=== PATIENT | female | born 2000 | race Caucasian/White ===

== ENCOUNTER 2023-08-09 22:05 | Emergency (ER) | payer SELFPAY ==
[2023-08-09] MEDS ORDERED: Azithromycin 250 MG TAB ONE (23:46)
== END 2023-08-09 23:53 | disposition home or self-care (01) ==
LOC: CSHERS 22:05
DX: J02.9 Acute pharyngitis, unspecified (principal)
CPT/HCPCS: 87081; 87430; 99283